=== PATIENT | female | born 1985 | race Caucasian/White ===

== ENCOUNTER 2016-11-30 05:24 | Day surgery (SDC) | payer BC ==
[~2016-11-30] VITALS: Ht 157.5 cm; Wt 82.7 kg
[~2016-11-30 05:24] MED LIST: FLONASE NASAL S16 GM NS; IBU800 M1 PO; MACROBID 1100 MG/CAP PO; METHERGINE0.2 MG/TAB PO; MONODOX100 PO; MOTRIN 600600 MG/TAB PO; PERCOCET 325 MG1 TA2 PO; PRENATAL PO; SENOKOT S 50 MG1 TAB PO
[2016-11-30 06:23] VITALS: BP 110/63; PULSE 71; TEMP 98.4
[2016-11-30] MEDS ORDERED: ASPIRIN 81M81 MG/TA2 PO (06:35)
[2016-11-30 08:00] VITALS: BP 110/58; PULSE 83; TEMP 98.3
[2016-11-30 08:15] VITALS: BP 113/94; PULSE 64
[2016-11-30] MEDS ORDERED: IBU800 M1 PO (08:24)
[2016-11-30] MEDS ORDERED: PERCOCET 325 MG1 TA2 PO (08:24)
[2016-11-30] MEDS ORDERED: DOXYCYCLINE HY100 MG PO (08:25)
[2016-11-30] MEDS ORDERED: METHERGINE0.2 MG/TAB PO (08:25)
[2016-11-30 08:30] VITALS: BP 113/64; PULSE 71
[2016-11-30 08:45] VITALS: BP 108/64; PULSE 69
== END 2016-11-30 09:13 | disposition home or self-care (01) ==
LOC: SDCO 05:24
DX: O02.1 Missed abortion (principal); Z3A.11 11 weeks gestation of pregnancy; E66.9 Obesity, unspecified; Z68.31 Body mass index [BMI] 31.0-31.9, adult; Z87.891 Personal history of nicotine dependence
CPT/HCPCS: J1885; J2210; J2405; J2704; J3010; J7120

== ENCOUNTER → 2018-03-11 | Outpatient (CLI) | payer BC ==
[~2018-03-11] MED LIST changes: +ASPIRIN 81M81 MG/TA2 PO; +DOXYCYCLINE HY100 MG PO
== END ==
LOC: LAC 13:53
DX: Z39.1 Encounter for care and examination of lactating mother (principal); Z71.89 Other specified counseling